=== PATIENT | male | born 1980 | race Caucasian/White ===

== ENCOUNTER 2017-08-10 13:45 | Emergency (ER) | payer OTHER ==
[~2017-08-10] VITALS: Ht 182.9 cm; Wt 93.0 kg
[~2017-08-10 13:45] MED LIST: Z.0.NO CURRENT MEDS
[2017-08-10 13:47] VITALS: BP 142/90; PULSE 101; RESP 16; TEMP 98.2; O2SAT 96
[2017-08-10 14:54] VITALS: BP 143/85; PULSE 62; RESP 19; TEMP 98.4; O2SAT 96
[2017-08-10] MEDS ORDERED: SODIUM CHLOR 0.9% 1000 ML INJ 1,000 ML IV ONE (14:54)
[2017-08-10] MEDS ORDERED: ONDANSETRON HCL 4 MG/2 ML VIAL IV PUSH ONE (15:00)
[2017-08-10] MEDS ORDERED: KETOROLAC TROMETHAMINE 30 MG/ML (IVP) VIAL IV PUSH ONE (15:00)
[2017-08-10] MEDS ORDERED: cefTRIAXone INJ 2,000 MG in SODIUM CHLORIDE 0.9% INJ 100 ML IV ONE (15:00)
[2017-08-10] MEDS ORDERED: MORPHINE SULFATE 4 MG/ML INJ IV PUSH ONE (15:00)
[2017-08-10 15:19] LABS: AUTOMATED NEUTROPHIL # 8.6 TH/MM3 (1.8-7.7); BASOPHIL # 0.1 TH/MM3 (0-0.2); BASOPHIL % 0.6 % (0.0-2.0); EOSINOPHIL % 0.1 % (0.0-4.0); HEMATOCRIT 44.9 % (39.0-51.0); HEMO FLAGS DIFF FINAL; LYMPH % 15.3 % (9.0-44.0); LYMPHOCYTE # 1.7 TH/MM3 (1.0-4.8); MEAN CELL VOLUME 86.2 FL (80.0-100.0); MEAN CORPUSCULAR HEMOGLOBIN 30.2 PG (27.0-34.0); MONO % 4.5 % (0.0-8.0); NEUT % 79.5 % (16.0-70.0); PLATELET COUNT 295 TH/MM3 (150-450); RED BLOOD COUNT 5.22 MIL/MM3 (4.50-5.90); RED CELL DISTRIBUTION WIDTH 13.1 % (11.6-17.2); WHITE BLOOD COUNT 10.8 TH/MM3 (4.0-11.0)
--- NOTE | 2017-08-10 15:26 | PD ---
HPI Chief Complaint: Flank/Kidney Pain Time Seen by Provider: 14:42 Travel History International Travel<30 days: No Contact w/Intl Traveler<30days: No Traveled to known affect area: No History of Present Illness HPI PATIENT WAS AT [facility] ABOUT 3 SWEEKS AGO WHEN HE WAS DIAGNOSED WITH LARGE KIDNEY STONE AND HAD A STENT PLACED BY DR BESS. UPON RETURNING TO HIS CLINIC HE WAS ADVISED TO OBTAIN FINANCIAL ASSISTANCE FOR REMOVAL OF STENT. THIS WAS NOT DONE, PATIENT THEN WENT TO [facility] WHERE HE WAS TREATED FOR HIS PAIN, GIVEN BACTRIM AND REFERRED OUT. UNHAPPY WITH THIS PROCESS PATIENT "CONTACTED A SUSTAINABLE DESIGN COORDINATOR, WHO CALLED THE DOCTOR AND THEN RETURNED CALL STATING GO TO [facility]" THIS WAS THE STATEMENT MADE BY PATIENT. PATIENT IS HERE FOR LEFT FLANK PAIN, WHICH HE HAS HAD SINCE STENT PLACED AND WAS DIAGNOSED WITH UTI YESTERDAY AT [facility]. PATIENT HAS NO NEW COMPLAINT PFSH Past Medical History Diminished Hearing: No Kidney Stones: Yes ?: Not Past Surgical History Other Surgery: Yes (left kidney stent) Social History Alcohol Use: No Tobacco Use: No Substance Use: No Allergies-Medications (Allergen,Severity, Reaction): Coded Allergies: No Known Allergies (Verified , 08/10/17) Reported Meds & Prescriptions Reported Meds & Active Scripts Active Reported No Current Meds (Miscellaneous Medication) Misc Review of Systems Except as stated in HPI: all other systems reviewed are Neg General / Constitutional: No: Fever Eyes: No: Visual changes HENT: No: Headaches Cardiovascular: No: Chest Pain or Discomfort Respiratory: No: Shortness of Breath Gastrointestinal: No: Abdominal Pain Genitourinary: Positive: Flank Pain Musculoskeletal: No: Pain Skin: No Rash Neurologic: No: Weakness Psychiatric: No: Depression Endocrine: No: Polydipsia Hematologic/Lymphatic: No: Easy Bruising Physical Exam Narrative GENERAL: SKIN: Warm and dry. HEAD: Atraumatic. Normocephalic. EYES: Pupils equal and round. No scleral icterus. No injection or drainage. ENT: No nasal bleeding or discharge. Mucous membranes pink and moist. NECK: Trachea midline. No JVD. CARDIOVASCULAR: Regular rate and rhythm. RESPIRATORY: No accessory muscle use. Clear to auscultation. Breath sounds equal bilaterally. GASTROINTESTINAL: Abdomen soft, non-tender, nondistended. MUSCULOSKELETAL: Extremities without clubbing, cyanosis, or edema. No obvious deformities. NEUROLOGICAL: Awake and alert. No obvious cranial nerve deficits. Motor grossly within normal limits. Five out of 5 muscle strength in the arms and legs. Normal speech. PSYCHIATRIC: Appropriate mood and affect; insight and judgment normal. Data Data Last Documented VS Vital Signs Date Time Temp Pulse Resp B/P (MAP) Pulse Ox O2 Delivery O2 Flow Rate FiO2 08/10/17 16:42 17 08/10/17 14:54 98.4 62 143/85 (104) 96 Room Air Orders Orders Mandatory Outpatient Referral (08/10/17 14:54) Complete Blood Count With Diff (08/10/17 14:54) Basic Metabolic Panel (Bmp) (08/10/17 14:54) Urinalysis - C+S If Indicated (08/10/17 14:54) Ct Abd/Pel W/O Iv Contrast (08/10/17 14:54) Ecg Monitoring (08/10/17 14:54) Iv Access Insert/Monitor (08/10/17 14:54) Ketorolac Inj (Toradol Inj) (08/10/17 15:00) Morphine Inj (Morphine Inj) (08/10/17 15:00) Ondansetron Inj (Zofran Inj) (08/10/17 15:00) Sodium Chlor 0.9% 1000 Ml Inj (Ns 1000 M (08/10/17 14:54) Ceftriaxone Inj (Rocephin Inj) (08/10/17 15:00) Urine Culture (08/10/17 15:00) Hydromorphone Pf Inj (Dilaudid Pf Inj) (08/10/17 16:45) Ed Discharge Order (08/10/17 17:19) Labs Laboratory Tests Test 08/10/17 15:00 08/10/17 16:07 White Blood Count 10.8 TH/MM3 Red Blood Count 5.22 MIL/MM3 Hemoglobin 15.7 GM/DL Hematocrit 44.9 % Mean Corpuscular Volume 86.2 FL Mean Corpuscular Hemoglobin 30.2 PG Mean Corpuscular Hemoglobin Concent 35.0 % Red Cell Distribution Width 13.1 % Platelet Count 295 TH/MM3 Mean Platelet Volume 8.4 FL Neutrophils (%) (Auto) 79.5 % Lymphocytes (%) (Auto) 15.3 % Monocytes (%) (Auto) 4.5 % Eosinophils (%) (Auto) 0.1 % Basophils (%) (Auto) 0.6 % Neutrophils # (Auto) 8.6 TH/MM3 Lymphocytes # (Auto) 1.7 TH/MM3 Monocytes # (Auto) 0.5 TH/MM3 Eosinophils # (Auto) 0.0 TH/MM3 Basophils # (Auto) 0.1 TH/MM3 CBC Comment DIFF FINAL Differential Comment Urine Color YELLOW Urine Turbidity CLEAR Urine pH 5.5 Urine Specific [place] 1.015 Urine Protein TRACE mg/dL Urine Glucose (UA) NEG mg/dL Urine Ketones 10 mg/dL Urine Occult Blood MOD Urine Nitrite NEG Urine Bilirubin NEG Urine Urobilinogen LESS THAN 2.0 MG/DL Urine Leukocyte Esterase LARGE Urine RBC 66 /hpf Urine WBC 11 /hpf Urine Bacteria RARE /hpf Microscopic Urinalysis Comment CULTURE INDICATED Blood Urea Nitrogen 11 MG/DL Creatinine 1.12 MG/DL Random Glucose 93 MG/DL Calcium Level 8.5 MG/DL Sodium Level 143 MEQ/L Potassium Level 3.7 MEQ/L Chloride Level 112 MEQ/L Carbon Dioxide Level 23.0 MEQ/L Anion Gap 8 MEQ/L Estimat Glomerular Filtration Rate 74 ML/MIN MDM Medical Decision Making Medical Screen Exam Complete: Yes Emergency Medical Condition: Yes Medical Record Reviewed: Yes Differential Diagnosis PYELO V KIDNEY STONE V STENT RELATED PAIN Narrative Course PATIENT WAS SEEN AND CASE D/W DR BESS WHO WAS NOT AWARE THAT PATIENT LIVES IN [place]...WHICH IS OUTSIDE THE [facility] (ONE THE FINANCIAL ASSISTANCE REQUIREMENTS PER CASE MANAGEMENT, HOWEVER CONSUMER SALES REPRESENTATIVE SUSAN STATED THAT HE CAN DO THE SAME APPLICATION FOR FINANCIAL ASSITANCE OUT [place] ) PATIENT VOICED UNDERSTANDING...OF NOTE THIS PATIENT WAS SEEN HERE, PROVIDED IV ABX, IVF, PAIN MEDICATION AND CASE MANAGEMENT CARE WHICH SUPERCEDES ANY REQUIRED CARE. PATIENT WAS CARE FOR WELL AND IS NOW BEING ADVISED BY PROJECT PLANNER SUSAN HERSELF. MEDICALLY PATIENT DID NOT HAVE ANY E/O RENAL FAILURE, NO E/O LEUKOCYTOSIS, OR ANEMIA. UA C/W UTI WHICH IS ALREADY KNOWN TO PATIENT Diagnosis Primary Impression: UTI Additional Impression: LEFT RENAL STENT Referrals: Rodney Bess MD PLEASE SETUP FINANCIAL ASSISTANCE AND DR BESS WILL BE ABLE TO FOLLOW UP WITH YOU. Patient Instructions: General Instructions, Urinary Tract Infection in Men (DC) Additional Instructions: PLEASE FILL YOUR CIPRO PRESCRIPTION (FREE AT PUBL[employer]) AND CAN TAKE ALLEVE OVER THE COUNTER FOR ANTIINFLAMMATORY PAIN CONTROL. PLEASE FOLLOW UP WITH PATIENT ASSISTANCE DIRECTIONS GIVEN BY CASE MANAGEMENT TO SETUP THE REMOVAL OF YOUR LEFT URETERAL STENT Disposition: 01 DISCHARGE HOME Condition: Stable Jonel Epperson MD Aug 10, 2017 15:26
[2017-08-10 15:39] LABS: BACTERIA, URINE RARE /hpf; BLOOD, URINE MOD (NEG); COMMENT (UR) CULTURE INDICATED; CULTURE IF INDICATED CULTURE INDICATED; GLUCOSE,URINE NEG (NEG); KETONE, URINE 10 mg/dL (NEG); NITRITE,URINE NEG (NEG); PH, URINE 5.5 (5.0-8.5); URINE COLOR YELLOW (YELLW/STRAW)
--- NOTE | 2017-08-10 16:19 | RADRPT ---
EXAM DATE/TIME: 08/10/2017 15:44 [facility] COMPARISON: No previous studies available for comparison. INDICATIONS : Patient has history of kidney stones, pain left flank. ORAL CONTRAST: No oral contrast ingested. RADIATION DOSE: 8.50 CTDIvol (mGy) MEDICAL HISTORY : Renal calculi. SURGICAL HISTORY : stent left side ENCOUNTER: Initial ACUITY: 1 month PAIN SCALE: 10/10 LOCATION: Left flank TECHNIQUE: Renal colic protocol. Volumetric scanning of the abdomen and pelvis was performed. Using automated exposure control and adjustment of the mA and/or kV according to patient size, radiation dose was kep t as low as reasonably achievable to obtain optimal diagnostic quality images. DICOM format image da ta is available electronically for review and comparison. FINDINGS: Right side: There are 2 calcified stones in the midpole of the right kidney, adjacent to each other, measuring in aggregate 8 mm. There is a solitary stone in the lower pole of the right kidney measuring 6 mm. No evidence of hydronephrosis. No calcifications along the course of the right ureter. Left side: Double J stent is present with the proximal loop in the extrarenal pelvis and the distal loop within the urinary bladder. There is minimal dilation of the collecting system of left kidney. There is a 4 mm stone in the proximal left ureter which is located posterior to the stent. There is a 2nd calci fied stone, located in the mid left ureter at the L4 level, measuring 3 mm. Bladder: No calcifications within the lumen of urinary bladder. Other: No dilated loops of small or large bowel. No calcified gallstones. The visualized lower lungs are c lear. The osseous structures are grossly intact. CONCLUSION: 1. Total 3 stones in the collecting system of the right kidney without evidence of hydronephrosis. 2. Double J stent present on the left side. There are 2 calcified stones in the left ureter, located proximal and in the mid left ureter. Min Mawxell MD on August 10, 2017 at 16:13 Board Certified Radiologist. This report was verified electronically.
[2017-08-10 16:42] VITALS: RESP 17
[2017-08-10] MEDS ORDERED: HYDROmorphone HCL PF 1 MG/ML VIAL IV PUSH ONE (16:45)
[2017-08-10 17:04] LABS: POTASSIUM 3.7 MEQ/L (3.5-5.1)
[2017-08-10] MEDS ORDERED: oxyCODONE/ACETAMINOPHEN 10 MG/325 MG TAB PO ONE (18:00)
== END 2017-08-10 18:59 | disposition home or self-care (01) ==
LOC: NEPE 13:45
DX: N39.0 Urinary tract infection, site not specified (principal); Z87.442 Personal history of urinary calculi
CPT/HCPCS: 74176; 80048; 81001; 85025; 87086; 96365; 96366; 96375; 99285; J0696; J1885; J2270; J2405; J7030